=== PATIENT | male | born 1955 | race Caucasian/White ===

== ENCOUNTER 2017-04-09 08:15 | Day surgery (SDC) | payer MEDICAID ==
[~2017-04-09] VITALS: Ht 167.6 cm; Wt 67.7 kg
[~2017-04-09 08:15] MED LIST: ACET-66 PO; LOSA50TA37 PO; METO50 PO; SODIUM CHLORIDE 0.9% 1,000 ML IV ONE; VITAD1000 PO
[2017-04-09 08:53] LABS: GLUCOSE,POINT OF CARE 100 MG/DL (70-110)
[2017-04-09] MEDS ORDERED: SODIUM CHLORIDE 0.9% 1,000 ML IV ONE (09:00)
== END 2017-04-09 11:40 | disposition home or self-care (01) ==
LOC: SURGERY 08:15
PROVIDERS: ATTEND Internal Medicine Gastroenterology
DX: K29.70 Gastritis, unspecified, without bleeding (principal); K21.9 Gastro-esophageal reflux disease without esophagitis; I10 Essential (primary) hypertension; G47.33 Obstructive sleep apnea (adult) (pediatric); Z98.890 Other specified postprocedural states
CPT/HCPCS: 82962; 88305; 88312; J7030

== ENCOUNTER 2021-12-29 12:32 | Emergency (ER) | payer BC, MEDICARE ==
[~2021-12-29] VITALS: Ht 167.6 cm; Wt 65.9 kg
[~2021-12-29 12:32] MED LIST changes: +CHOL100018 PO; +LOSA-382 PO; -LOSA50TA37 PO; -SODIUM CHLORIDE 0.9% 1,000 ML IV ONE; -VITAD1000 PO
[2021-12-29] MEDS ORDERED: AMLO-258 PO (12:52)
[2021-12-29] MEDS ORDERED: DIAZEPAM 5 MG TABLET PO ONE (13:45)
[2021-12-29 14:04] LABS: BASOPHILS % (AUTO) 0.2 % (0.0-2.0); EOSINOPHILS % (AUTO) 0.1 % (1.0-6.0); HEMATOCRIT 45.7 % (41-53); HEMOGLOBIN 14.5 g/dL (13.5-17.5); LYMPHOCYTES # (AUTO) 0.5 K/uL (1.0-4.8); LYMPHOCYTES % (AUTO) 6.6 % (22.0-44.0); MEAN CORPUSCULAR HEMOGLOBIN 21.9 pg (26.0-34.0); MEAN CORPUSCULAR HGB CONC 31.7 G/dL (31.0-37.0); MEAN CORPUSCULAR VOLUME 69 fL (80-100); MONOCYTES # (AUTO) 0.4 K/uL (0.1-1.0); MONOCYTES % (AUTO) 5.1 % (2.0-9.0); NEUTROPHILS # (AUTO) 7.1 K/uL (1.8-7.7); PLATELET COUNT (AUTO) 194 K/uL (150-450); RED BLOOD CELL COUNT(AUTO) 6.62 MIL/uL (4.50-5.90); RED CELL DISTRIBUTION WIDTH 15.2 % (11.5-14.5)
[2021-12-29 14:28] LABS: ALBUMIN 4.1 g/dL (3.4-5.0); BILIRUBIN,TOTAL 0.5 mg/dL (0.1-1.0); CALCIUM, TOTAL 9.2 mg/dL (8.8-10.5); CREATININE 1.59 mg/dL (0.60-1.30)
[2021-12-29 14:40] LABS: POTASSIUM 2.9 mmol/L (3.5-5.1)
[2021-12-29] MEDS ORDERED: POTASSIUM CHLORIDE 20 MEQ ER TABLET PO ONE (14:45)
[2021-12-29] MEDS ORDERED: LIDO700A15 TP (15:02)
[2021-12-29 15:35] VITALS: BP 132/80
== END 2021-12-29 15:37 | disposition home or self-care (01) ==
LOC: EMS 12:32
DX: M54.2 Cervicalgia (principal); I12.9 Hypertensive chronic kidney disease with stage 1 through stage 4 chronic kidney disease, or unspecified chronic kidney disease; N18.9 Chronic kidney disease, unspecified; R10.12 Left upper quadrant pain
CPT/HCPCS: 80053; 84484; 85025; 93005; 99284